=== PATIENT | male | born 1980 | race Caucasian/White ===

== ENCOUNTER 2021-01-29 15:08 | Emergency (ER) | payer OTHER ==
--- NOTE | 2021-01-29 18:22 | ED ---
General Adult HPI - General Chief complaint: Upper Respiratory Infection Stated complaint: Covid+/Wants Antibodies Time Seen by Provider: 01/29/21 18:10 Source: patient, family, RN notes reviewed Mode of arrival: ambulatory Limitations: no limitations - History of Present Illness Initial comments: 40-year-old well-appearing white male presents to the emergency room, alert and oriented 4, with complaints of upper respiratory congestion, frontal headache and shortness of breath with exertion. He did receive his second coronavirus vaccine on Sunday. He states his symptoms started on Sunday. They did have a friend of the family recently who from coronavirus and he is here for the monoclonal antibodies infusion. His only medical history is GERD and takes omeprazole. No other medical history no personal or family history of cardiac disease. He is a nonsmoker. -: days(s) (5) Location: head Radiation: non-radiation Severity scale (1-10): 0 Associated Symptoms: cough, headaches, shortness of breath - Related Data Allergies Allergy/AdvReac Type Severity Reaction Status Date / Time No Known Allergies Allergy Verified 01/29/21 16:34 Review of Systems ROS Statement: Those systems with pertinent positive or pertinent negative responses have been documented in the HPI. ROS Other: All systems not noted in ROS Statement are negative. Past Medical History Past Medical History: GERD/Reflux History of Any Multi-Drug Resistant Organisms: None Reported Past Surgical History: No Surgical Hx Reported Past Psychological History: No Psychological Hx Reported Smoking Status: Never smoker Past Alcohol Use History: None Reported Past Drug Use History: None Reported General Exam Limitations: no limitations General appearance: alert, in no apparent distress Head exam: Present: atraumatic, normocephalic, normal inspection Eye exam: Present: normal appearance, PERRL, EOMI. Absent: scleral icterus, conjunctival injection, periorbital swelling ENT exam: Present: normal exam, normal oropharynx, mucous membranes moist Neck exam: Present: normal inspection, full ROM. Absent: tenderness, meningismus, lymphadenopathy, thyromegaly Respiratory exam: Present: normal lung sounds bilaterally. Absent: respiratory distress, wheezes, rales, rhonchi, stridor, chest wall tenderness, accessory muscle use, decreased breath sounds Cardiovascular Exam: Present: regular rate, normal rhythm, normal heart sounds. Absent: systolic murmur, diastolic murmur, rubs, gallop, clicks GI/Abdominal exam: Present: soft, normal bowel sounds. Absent: distended, tenderness, guarding, rebound, rigid Extremities exam: Present: normal inspection, full ROM, normal capillary refill. Absent: tenderness, pedal edema, joint swelling, calf tenderness Back exam: Present: normal inspection, full ROM. Absent: tenderness, CVA tenderness (R), CVA tenderness (L), rash noted Neurological exam: Present: alert, oriented X3 Psychiatric exam: Present: normal affect, normal mood Skin exam: Present: warm, dry, intact, normal color. Absent: rash, cyanosis, diaphoretic, petechiae, pallor Course Vital Signs 01/29/21 01/29/21 16:30 20:36 Temperature 98.9 F 98.3 F Pulse Rate 90 84 Respiratory 16 18 Rate Blood Pressure 178/89 152/98 O2 Sat by Pulse 97 97 Oximetry Medical Decision Making - Medical Decision Making 40-year-old male presents to the emergency room with complaints of upper respiratory congestion, frontal headache and shortness of breath with exertion. He did receive his second coronavirus vaccine on Sunday. He is here for the monoclonal antibodies infusion. He tolerated the infusion without any complications. His vital signs are stable and his oxygen saturation is 97% on room air. Patient was directed to return with any new or worsening symptoms. Self quarantine for 10 days from symptom onset and 24 hours without a fever. Ca se discussed with Dr. New - Lab Data Lab Results 01/29/21 Range/Units 16:37 Coronavirus (PCR) Detected A (Not Detectd) Disposition Clinical Impression: COVID-19 Disposition: HOME SELF-CARE Condition: Good Instructions (If sedation given, give patient instructions): Coronavirus Disease 2019 (COVID-19) Additional Instructions: Take Tylenol and or Motrin as needed for body aches or pains. Increase your fluid intake. You can take vitamin C, vitamin D and zinc for immune health. Self quarantine for 10 days from symptom onset and 24 hours without fever. Return to the emergency room with any new or worsening symptoms. Is patient prescribed a controlled substance at d/c from ED?: No Referrals: Sekou Zamora DO [Primary Care Provider] - 1-2 days Time of Disposition: 22:19
[2021-01-29] MEDS: BAMLANIVIMAB (EUA) 700 MG, ETESEVIMAB (EUA) 1,400 MG in SODIUM CHLORIDE 0.9% 100 ML IVPB ONE (19:27)
[2021-01-29] MEDS: SODIUM CHLORIDE 0.9% 50 ML IVPB ONE (19:28)
[2021-01-29 20:39] VITALS: BP 152/98; PULSE 84; RESP 18; TEMP 98.3
== END 2021-01-29 20:38 | disposition home or self-care (01) ==
LOC: EC 15:08
DX: U07.1 COVID-19 (principal)
CPT/HCPCS: 87635; 99284; J3490